=== PATIENT | male | born 1950 | race Caucasian/White ===

== ENCOUNTER 2018-08-30 08:14 | Inpatient (IN) ==
[2018-08-30] MEDS ORDERED: CeFAZolin Syr 2,000MG/20 ML 2,000 MG/20 ML SYRINGE IVPB ONE (10:38)
[2018-08-30] MEDS ORDERED: Ondansetron 4 MG/2 ML VIAL IVP PRN (10:39)
[2018-08-30] MEDS: Ringers Solution, Lactated 1,000 ML IVC SCH ×2 (11:27→20:26)
[2018-08-30 12:04] LABS: Basophils # 0.1 K/mcL (0.0-0.2); Eosinophils # 0.2 K/mcL (0.0-0.6); Eosinophils % 2.1 %; Hematocrit 34.1 % (37.5-50.1); Hemoglobin 11.3 g/dL (12.9-16.9); Immature Granulocytes % 0.3 % (0-4); Lymphocytes # 3.3 K/mcL (0.6-4.6); Lymphocytes % 36.6 %; Mean Corpuscular HGB Conc 33.1 g/dL (31.6-35.5); Mean Corpuscular Hemoglobin 30.2 pg (28.0-33.3); Mean Corpuscular Volume 91.2 fL (83.0-100.0); Monocytes # 0.8 K/mcL (0.0-1.3); Neutrophils # 4.6 K/mcL (1.6-8.9); Platelet Count 249 K/mcL (140-400); Red Blood Count 3.74 M/mcL (4.19-5.50); Red Cell Distribution Width 13.6 % (11.5-14.5)
[2018-08-30 12:10] LABS: Prothrombin Time 11.2 Seconds (9.4-12.1)
[2018-08-30 12:13] LABS: Activated Partial Thrombo Time 33.8 Seconds (26.0-36.0)
[2018-08-30 12:29] LABS: BUN/Creatinine Ratio 14 (6-26); Blood Urea Nitrogen 9 mg/dL (8-23); Calcium 10.2 mg/dL (8.6-10.3); Carbon Dioxide 26 mEq/L (23-29); Chloride 104 mEq/L (98-107); Glucose 80 mg/dL (70-105); Osmolality,Calculated 290 (280-300); Potassium 4.1 mEq/L (3.5-5.1); Sodium 141 mEq/L (136-145); eGFR For Non-African Americans > 60 (> 60)
--- NOTE | 2018-08-30 13:44 | Spine - History & Physical Rep ---
Date of Encounter: 08/30/18 Time of Encounter: 13:42 Assessment and Plan (1) Cervical stenosis of spinal canal Current visit: Yes Status: Chronic (2) Cervical myelopathy Current visit: Yes Status: Chronic On physical exam he is awake and alert in mild distress secondary to pain and nu mbness in upper extremities. Afebrile vital signs stable. He has an unsteady, wide-based gait pattern. He has a positive finger escape sign. He has an equivocal [place] sign. He has no clonus. He can fire all upper and lower extremity motor groups. Lungs are clear, cardiovascular regular rate and rhythm. Abdomen soft, nontender nondistended. Hips move symmetrically. There is no clubbing cyanosis or edema. AP and lateral views of the cervical spine reveal cervical fusion with instrume ntation anteriorly with appropriately placed interbody graft C4-C7. At C3-4 there is a anterolisthesis. There are multilevel degenerative changes. MRI of the cervical spine reveals multilevel degenerative changes. There is previous cervical fusion anteriorly C4-C7. There is severe stenosis with essentially no CSF signal seen at C3-4. This is due to a combination of the anterolisthesis, anterior cervical decompression, and hypertrophied ligamentum flavum posteriorly. There is an anterolisthesis C3 on C4. Impression: 1) cervical stenosis adjacent to previous fusion 2) cervical myelopathy 3) history of cervical fusion Plan: The patient has high likelihood of worsening neurologic function and is at risk for neurologic progression. In this regard I find it reasonable to consider surgery in the form of a exploration of fusion, removal of hardware, anterior cervical decompression fusion C3-4. Risk and benefits were discussed and the patient would like to proceed. He understands he must be medically optimized and cleared prior to surgical intervention. (3) History of cervical spinal arthrodesis Current visit: Yes Status: Chronic History of Present Illness Chief complaint: Following, unsteady gait, upper extremity numbness HPI: Mr. Davison is a 67 year old male who complains of progressive unsteadiness of gait, clumsiness, impairment in hand dexterity such that he cannot perform his usual functional tasks, numbness in the bilateral upper extremities which is been worsening over the course of 4-6 weeks. He has a history of previous cervical fusion. His family doctor was concerned and ordered an MRI examination of the cervical spine which showed significant abnormalities. He came to the office today complaining of worsening symptomatology and was admitted for definitive management. He denies any bowel bladder symptomatology. He denies any fevers, chills or weight loss. Past Med Surg Social Fam HX - Past Medical History Medical history: hyperlipidemia, hypertension Additional medical history: sleep apnea Psychiatric history: no psych history - Past Surgical History Additional surgical history: RIGHT TOTAL KNEE ARTHROPLASTY. RIGHT TOTAL SHOULDER ARTHROPLASTY. BACK SURGERY X2. LEFT FOOT SURGERY X2. Neck surgery with plate placement - Social History Smoking Status: Current every day smoker Packs per day: Less than half a pack. Smokeless Tobacco Status: No Alcohol use: none Drug use: none - Family History Father Living Status: Age at : 58 Hx Family Cardiac Disorders: Yes ([place]) Brother Living Status: Age at : 64 Hx Family Cancer: Yes Medications and Allergies Aspirin Enteric Coated [Aspirin EC] 81 mg PO DAILY 08/13/17 [History] Celecoxib [Celebrex] 200 mg PO DAILY 08/13/17 [History] Diclofenac Sodium [Voltaren] 1 appl TP QID PRN 08/13/17 [History] Lisinopril-HCTZ 20-12.5 [Prinzide 20-12.5] 1 tab PO DAILY 08/13/17 [History] Multivitamin [One Daily Essential] 1 tab PO DAILY 08/13/17 [History] OxyCODONE Immed Rel [Roxicodone 5 MG] 5 mg PO Q4HR PRN #24 tablet 08/13/17 [Rx] Pravastatin Sodium [Pravachol] 40 mg PO HS 08/13/17 [History] Ciprofloxacin [Cipro] 500 mg PO BID #14 tablet 07/05/18 [Rx] Phenazopyridine HCl [Pyridium] 200 mg PO TID PRN #6 tab 07/05/18 [Rx] Allergy/AdvReac Type Severity Reaction Status Date / Time No Known Allergies Allergy Verified 07/05/18 12:05 Results - Labs Result Diagrams: 08/30/18 11:34 08/30/18 11:34 Labs: Abnormal lab results RBC 3.74 M/mcL (4.19-5.50) L 08/30/18 11:34 Hgb 11.3 g/dL (12.9-16.9) L 08/30/18 11:34 Hct 34.1 % (37.5-50.1) L 08/30/18 11:34 MPV 9.0 fL (9.4-12.4) L 08/30/18 11:34 Creatinine 0.66 mg/dL (0.70-1.30) L 08/30/18 11:34 H & H 08/30/18 Range/Units 11:34 Hgb 11.3 L (12.9-16.9) g/dL Hct 34.1 L (37.5-50.1) % All other labs normal.
[2018-08-30] MEDS: *HR* HYDROcodone/Acet 5/325 mg TABLET PO PRN (15:34)
[2018-08-30] MEDS ORDERED: *HR* HYDROcodone/Acet 5/325 mg TABLET PO PRN (17:07)
[2018-08-30] MEDS ORDERED: Naloxone 0.4 MG/ML INJ IVP PRN (17:09)
--- NOTE | 2018-08-30 20:27 | Anesthesia Evaluation PreOp ---
Addendum entered and electronically signed by Sylwia Sanchez MD 08/31/18 14:06: 08-31-18 TTE: Impressions: LVEF 60%. Moderate left ventricular diastolic dysfunction. Normal right ventricular structure and function. Mild mitral regurgitation. Moderate-severe aortic stenosis by Doppler. Grossly, aortic valve leaflet excursion appears severely reduced. Mild-moderate aortic regurgitation. Mild tricuspid regurgitation. Original Note: Date of Encounter: 08/30/18 Time of Encounter: 19:20 - Past History Planned Operation: ACDF C3-4 Cardiac History: HTN, Hyperlipidemia Pulmonary History: Smoker, AMY Dx (non compliant with CPAP) [employer] History: Other (Cervical Stenosis and Myelopathy) Other Medical History: GERD, Other (Rheumatoid Arthritis) Anesthesia History: No Prior Anesthetic Complications, Past Anesthesia (ACDF) Alcohol Use: none Drug use: none Medications and Allergies Aspirin Enteric Coated [Aspirin EC] 81 mg PO DAILY 08/13/17 [History] Celecoxib [Celebrex] 200 mg PO DAILY 08/13/17 [History] Multivitamin [One Daily Essential] 1 tab PO DAILY 08/13/17 [History] Pravastatin Sodium [Pravachol] 40 mg PO HS 08/13/17 [History] HYDROcodone/Acet 5/325 mg [[place] 5-325 mg] 1 tab PO TID PRN 08/30/18 [History] Lisinopril [Zestril] 40 mg PO DAILY 08/30/18 [History] Allergy/AdvReac Type Severity Reaction Status Date / Time No Known Allergies Allergy Verified 07/05/18 12:05 - Meds/Allergy Pre-op Review Medications Reviewed: Yes Allergies Reviewed: Yes Beta Blockers on Current Med List: No Anesthesia Results - Labs 08/30/18 11:34 08/30/18 11:34 - Imaging EKG: report reviewed (SR) Anesthesia Exam Vital Signs/O2 Sat/Glucose, Most Current Temp Pulse Resp BP Pulse Ox 08/30/18 18:47 98.7 F 75 17 128/71 98 Height: 5'8 Weight: 165 lbs NPO (# of Hours): MN Pain Scale: 3 - HEENT Pupil (Motor): Pupils equal, EOMI Mallampati: II Teeth: Normal Oral Opening: Less than or equal to 3 (limited neck extension) - [employer] LOC: Oriented [employer] Motor: Normal Face, Deficit RUE (weakness), Deficit LUE (weakness), Deficit RLE (slight weakness), Deficit LLE (slight weakness with gait) [employer] Sensory: Normal: RLE, LLE, Face, Deficit: RUE (paresthesia), LUE (paresthesia) - Cardiac Rhythm: Regular Murmur: None JVD: No Carotid Bruit: No - Pulmonary Breath Sounds: bilateral Clear Respiratory Effort: Symmetrical Anesthesia Assess/Plan ASA Score: 3 (HTN Tobacco AMY Gerd) Modified [place] Scale for Level of Consciousness: Cooperative, oriented, and tranquil Anesthetic Plan: General Monitoring Plan: Standard Monitors Recovery Plan: PACU (Discussed [place], agrees to proceed)
--- NOTE | 2018-08-30 20:40 | Internal Medicine Consult Note ---
Date of Encounter: 08/30/18 Time of Encounter: 20:38 - Assessment and plan (1) Cervical stenosis of spinal canal Current Visit: Yes Status: Chronic Assessment and plan: Pt seen by Dr. Connor and planing for surgery 08/31/2018. Pre-op evaluation Patient with known hx of HTN and HLD who denies prior hx of CAD, PVD, or [place]. Based on pt's home activity, his METs is >4. Based of pt's above history and physical, he poses low risk for intermediate risk procedure. However, due to audible murmur on exam will strongly recommend echo prior to surgical intervention. Will also check baseline EKG if not already done in ED. (2) Heart murmur Current Visit: Yes Status: Acute Assessment and plan: Pt states he is aware of hx of murmur. His last echo was about 10 years ago. He denies prior hx or CHF or aortic stenosis he is aware of. Murmur is about grade III/ and diastolic in nature. Will check echo in am (3) Hypertension Current Visit: No Status: Chronic Assessment and plan: Pt is on Lisinopril. Qualifiers: Hypertension type: unspecified Qualified Code(s): I10 - Essential (primary) hypertension (4) Hyperlipidemia Current Visit: No Status: Chronic Assessment and plan: Atorvastatin Qualifiers: Hyperlipidemia type: unspecified Qualified Code(s): E78.5 - Hyperlipidemia, unspecified - Time Spent With Patient Total time spent is greater than 50% in coordination of care (as documented) at patient's floor/unit and/or counseling patient: 25 - 35 minutes Internal Medicine - CN: HPI - Data of Consult Consult date: 08/30/18 Requesting Physician: Antoine Lopez Jr MD - Consult Narrative History of present illness: Mr. Davison is a 67 year old male with past medical history of HTN and HLD. Pt has hx of or cervical stenosis and previous fusion but presented with cervical myelopathy which pt an states have been ongoing for > 8 months. Pt had reported multiple joint injections but numbness in B/L upper Extremity progressed. Pt noted to have murmur on physical exam which he states he is aware of, however his last echo was about 10 years ago. He denies any hx of CAD, UT, or PAD. He denies CP, SOB, fever, chills, N/V, abdominal pain, constipation or diarrhea. Past Med Surg Social Fam HX - Past Medical History Medical history: hyperlipidemia, hypertension Additional medical history: sleep apnea Psychiatric history: no psych history - Past Surgical History Additional surgical history: RIGHT TOTAL KNEE ARTHROPLASTY. RIGHT TOTAL SHOULDER ARTHROPLASTY. BACK SURGERY X2. LEFT FOOT SURGERY X2. Neck surgery with plate placement - Social History Smoking Status: Current every day smoker Packs per day: Less than half a pack. Smokeless Tobacco Status: No Alcohol use: none Drug use: none - Family History Father Living Status: Age at : 58 Hx Family Cardiac Disorders: Yes ([place]) Brother Living Status: Age at : 64 Hx Family Cancer: Yes Internal Medicine - CN: Meds Aspirin Enteric Coated [Aspirin EC] 81 mg PO DAILY 08/13/17 [History] Celecoxib [Celebrex] 200 mg PO DAILY 08/13/17 [History] Multivitamin [One Daily Essential] 1 tab PO DAILY 08/13/17 [History] Pravastatin Sodium [Pravachol] 40 mg PO HS 08/13/17 [History] HYDROcodone/Acet 5/325 mg [[place] 5-325 mg] 1 tab PO TID PRN 08/30/18 [History] Lisinopril [Zestril] 40 mg PO DAILY 08/30/18 [History] Allergy/AdvReac Type Severity Reaction Status Date / Time No Known Allergies Allergy Verified 07/05/18 12:05 Hospitalist - CN: Exam - Constitutional Vitals: Temp Pulse Resp BP Pulse Ox 98.7 F 75 17 128/71 98 08/30/18 18:47 08/30/18 18:47 08/30/18 18:47 08/30/18 18:47 08/30/18 18:47 General appearance IM: Present: A&O X 3, no acute distress Exam: . - Head Head exam: Present: atraumatic - Eye Eye exam: Present: EOMI, normal appearance Pupils: Present: fixed, PERRL - ENT ENT exam: Present: mucous membranes moist, normal exam - Expanded ENT Exam Mouth exam: Present: normal external inspection Throat exam: Present: normal inspection - Neck Neck exam general surgery: Present: normal inspection, supple, trachea midline. Absent: tenderness, thyromegaly - Respiratory Respiratory exam: Present: CTAB. Absent: respiratory distress, rhonchi, wheezes - Cardiovascular Cardiovascular exam IM: Present: diastolic murmur - GI/Abdominal GI/Abdominal exam IM: Present: normal bowel sounds, soft. Absent: splenomegaly, tenderness - Extremities Exam Extremities exam IM: Present: full ROM, normal inspection. Absent: calf tenderness, pedal edema, tenderness - Neurological Exam Neurological exam: Present: CN II-XII intact, oriented X3. Absent: no focal deficits - Psychiatric Psychiatric exam: Present: normal affect, normal mood - Skin Skin exam IM: Present: intact, normal color. Absent: erythema, pallor, rash Internal Medicine - CN: Reslt - Labs CBC & Chem 7: 08/30/18 11:34 08/30/18 11:34 Labs: Short CBC 08/30/18 Range/Units 11:34 WBC 9.1 (4.3-11.1) K/mcL Hgb 11.3 L (12.9-16.9) g/dL Hct 34.1 L (37.5-50.1) % Plt Count 249 (140-400) K/mcL Neutrophils # 4.6 (1.6-8.9) K/mcL BMP 08/30/18 11:34 Sodium 141 Potassium 4.1 Chloride 104 Carbon Dioxide 26 BUN 9 Creatinine 0.66 L Glucose 80 Calcium 10.2 - ABG Interpretation ABG results: PT/INR, D-dimer PT 11.2 Seconds (9.4-12.1) 08/30/18 11:34 - Impressions Impressions Chest X-Ray 08/30/18 10:33 IMPRESSION: 1. No acute cardiopulmonary disease. 2. Suspected radiographic findings of emphysema. Correlate with pulmonary history. D/ / Marcio Duvall / Marcio Duvall Interpreting Provider: Marcio Duvall Consult Discharge Plan - Plan Referrals: Avila Sapp [Primary Care Provider] -
[2018-08-31] MEDS: *HR* HYDROcodone/Acet 5/325 mg TABLET PO PRN ×2 (00:53→07:17)
[2018-08-31] MEDS: Ringers Solution, Lactated 1,000 ML IVC SCH (07:21)
[2018-08-31] MEDS ORDERED: Lisinopril 20 MG TABLET PO SCH (09:00)
[2018-08-31] MEDS ORDERED: Multivit/Ca/Min/Fe/FA 1 TAB TABLET PO SCH (09:00)
[2018-08-31] MEDS ORDERED: Celecoxib 200 MG CAPSULE PO SCH (09:00)
[2018-08-31] MEDS ORDERED: Aspirin Enteric Coated 81 MG Tablet PO SCH (09:00)
[2018-08-31 11:31] VITALS: BP 116/77
--- NOTE | 2018-08-31 13:38 | Internal Med Progress Note ---
Hospitalist Progress Note - Encounter Date of Encounter: 08/31/18 Time of Encounter: 13:34 - Subjective Interval History: Pt denies chest pain or SOB. He denies fever, chills, N/V or diarrhea. He denies constipation. - Exam Vitals: Temp Pulse Resp BP Pulse Ox 97.6 F 91 16 116/77 91 08/31/18 11:30 08/31/18 11:30 08/31/18 11:30 08/31/18 11:30 08/31/18 11:30 Exam: General appearance IM: Present: A&O X 3, no acute distress Exam: - Head Head exam: Present: atraumatic - Eye Eye exam: Present: EOMI, normal appearance Pupils: Present: fixed, PERRL - ENT ENT exam: Present: mucous membranes moist, normal exam - Expanded ENT Exam Mouth exam: Present: normal external inspection Throat exam: Present: normal inspection - Neck Neck exam general surgery: Present: normal inspection, supple, trachea midline. Absent: tenderness, thyromegaly - Respiratory Respiratory exam: Present: CTAB. Absent: respiratory distress, rhonchi, wheezes - Cardiovascular Cardiovascular exam IM: Present: diastolic murmur grade III/ - GI/Abdominal GI/Abdominal exam IM: Present: normal bowel sounds, soft. Absent: splenomegaly, tenderness - Extremities Exam Extremities exam IM: Present: full ROM, normal inspection. Absent: calf tenderness, pedal edema, tenderness - Neurological Exam Neurological exam: Present: CN II-XII intact, oriented X3. Absent: no focal deficits - Psychiatric Psychiatric exam: Present: normal affect, normal mood - Skin Skin exam IM: Present: intact, normal color. Absent: erythema, pallor, rash - Assessment and Plan (1) Cervical stenosis of spinal canal Current Visit: Yes Status: Chronic Assessment and Plan: Pt seen by Dr. Connor and planing for surgery 08/31/2018. Pre-op evaluation Patient with known hx of HTN and HLD who denies prior hx of CAD, PVD, or MT. Based on pt's home activity, his METs is >4. Based of pt's above history and physical activity, he poses low risk for intermediate risk procedure. Will also check baseline EKG if not already done in ED. Echo showing moderate to severe aortic stenosis by doppler. Grossly, aortic valve leaflet excursion appears severely reduced. Echo impression/report below. Discussed with Dr. Richards and he states to keep pt from being hypotensive. Keep SBP > 130. Will need to avoid nitrates in patient. Echo 08/31/2018 EV/EV echocardiogram Impressions: LVEF 60%. Moderate left ventricular diastolic dysfunction. Normal right ventricular structure and function. Mild mitral regurgitation. Moderate-severe aortic stenosis by Doppler. Grossly, aortic valve leaflet excursion appears severely reduced. Mild-moderate aortic regurgitation. Mild tricuspid regurgitation. (2) Aortic stenosis Current Visit: Yes Status: Acute Assessment and Plan: Pt reported hx of murmur but was unaware of hx of aortic stenosis. After lengthy discussion with pt and his , he reports that he has been tired off and on. States he was feeling lightheaded at work and his PCP decreased his BP me dication as he thought it was due to working in the sun all day. Pt's states he used to be on HCTZ and Lisinopril but HCTZ was discontinued due to low BP and low NA and Lisinopril dose was decreased. Pt denies episode of syncope or passing out. 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 He states he walks up dirt hills and he also walks up steps. He denies any SOB of breath or recent CP. He states he probably cannot run and per his this is because of joint problems and hx of fused ankle surgery. Discussed with cardiology Dr. Richards and he states keep pt form being hypotensive. He also states if pt not asymptomatic may follow up out pt. Echo 08/31/2018 EV/EV echocardiogram Impressions: LVEF 60%. Moderate left ventricular diastolic dysfunction. Normal right ventricular structure and function. Mild mitral regurgitation. Moderate-severe aortic stenosis by Doppler. Grossly, aortic valve leaflet excursion appears severely reduced. Mild-moderate aortic regurgitation. Mild tricuspid regurgitation. (3) Heart murmur Current Visit: Yes Status: Acute Assessment and Plan: Pt states he is aware of hx of murmur. His last echo was about 10 years ago. He denies prior hx or CHF or aortic stenosis he is aware of. Murmur is about grade III/ and diastolic in nature. Echo as stated above (4) Hypertension Current Visit: No Status: Chronic Assessment and Plan: Pt is on Lisinopril. Will hold for now. (5) Hyperlipidemia Current Visit: No Status: Chronic Assessment and Plan: Atorvastatin DVT Prophylaxis: SCD - Summary of Assessment and Plan Summary of Assessment and Plan: Mr. Davison is a 67 year old male with past medical history of HTN and HLD. Pt has hx of or cervical stenosis and previous fusion but presented with cervical myelopathy which pt and states have been ongoing for > 8 months. Pt had reported multiple joint injections but numbness in B/L upper Extremity progressed. Pt noted to have murmur on physical exam which he states he is aware of, however his last echo was about 10 years ago. He denies any hx of CAD, MT, or PAD. He denies CP, SOB, fever, chills, N/V, abdominal pain, constipation or diarrhea. - Time Spent with Patient Total time spent is greater than 50% in coordination of care (as documented) at patient's floor/unit and/or counseling patient: less than 15 minutes Plan of Care Discussed with: patient Internal Medicine: Result - Labs CBC & Chem 7: 08/30/18 11:34 08/30/18 11:34 - ABG Interpretation ABG results: PT/INR, D-dimer PT 11.2 Seconds (9.4-12.1) 08/30/18 11:34 - Impressions Impressions Chest X-Ray 08/30/18 10:33 IMPRESSION: 1. No acute cardiopulmonary disease. 2. Suspected radiographic findings of emphysema. Correlate with pulmonary history. D/ / Marcio Duvall / Marcio Duvall Interpreting Provider: Marcio Duvall Echocardiogram 08/31/18 20:38 Impressions: LVEF 60%. Moderate left ventricular diastolic dysfunction. Normal right ventricular structure and function. Mild mitral regurgitation. Moderate-severe aortic stenosis by Doppler. Grossly, aortic valve leaflet excursion appears severely reduced. Mild-moderate aortic regurgitation. Mild tricuspid regurgitation. - VTE Documentation of Mechanical Device: Intermittent pneumatic compression device Consult Discharge Plan - Plan Referrals: Avila Sapp [Primary Care Provider] - (2) Aortic stenosis Qualifiers: Cardiac valve disease etiology: etiology unspecified Qualified Code(s): I35.0 - Nonrheumatic aortic (valve) stenosis (4) Hypertension Qualifiers: Hypertension type: unspecified Qualified Code(s): I10 - Essential (primary) hypertension (5) Hyperlipidemia Qualifiers: Hyperlipidemia type: unspecified Qualified Code(s): E78.5 - Hyperlipidemia, unspecified
--- NOTE | 2018-08-31 13:42 | Cardiology Consult Note ---
<Abdoul Butler - Last Filed: 08/31/18 13:53> Date of Encounter: 08/31/18 Time of Encounter: 13:30 Assessment and Plan (1) Cervical myelopathy Current Visit: Yes Status: Chronic Per Cardiology: Spinal surgery note reviewed and patient with pending surgery for exploration of fusion, removal of hardware, anterior cervical decompression fusion C3-4. (2) Aortic stenosis Current Visit: Yes Status: Acute Per Cardiology: History of murmur per patient and . Denies any awareness to bicuspid aortic valve. Echo showed moderate severe aortic stenosis. Patient appears clinically stable and he symptomatically, however does have limited mobility due to multiple with peak issues. Discussed and reviewed with Dr. Richards, at this juncture patient to be considered high risk for planned procedure from a cardiac standpoint. Patient and verbalized understanding and agree to plan. We will discontinue DEANGELO inhibitor and start on beta marco a. Cardiology will sign off, will follow-up in outpatient setting to monitor and stenosis, all questions answered. Please re-consult if needed. Qualifiers: Cardiac valve disease etiology: etiology unspecified Qualified Code(s): I35.0 - Nonrheumatic aortic (valve) stenosis Discussion w patient/family: The assessment and plan as outlined above was discussed with the patient and/or family members who expressed understanding and agreement. All questions were answered. Thank you for involving us in the care of your patient. Please call with any questions. History of Present Illness Consult date: 08/31/18 Requesting physician: Mimi Davies Consult reason: Aortic Stenosis Chief complaint: Neck Pain, Bilateral arm numbness History of present illness: Mr. Davison is a 67 year old male with a relevant past medical history of hypertension, hyperlipidemia, spinal discectomy and fusion, past history of nicotine abuse. Cardiology consult for murmur and aortic stenosis found on echo. Patient seen with at bedside. 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 He does report limited mobility due to back pain and pending cervical fusion surgery. He reports history of arthritis and ankle fusion. He reports pending surgery due to worsening bilateral upper extremity numbness and neck pain. He denies any history of syncope, dizziness, palpitations, falls. Reports was told he had a murmur about 20-30 years ago and had echo done at that time. He denies ever having ELMER completed. Denies any known history of CAD has never had stenting or bypass surgery. Denies any ICD or pacemaker. He denies any short of breath at rest and denies any significant short of breath with exertion. Past Med Surg Social Fam HX - Past Medical History Attestation: Yes The following information was validated with the patient. Source: patient, old records reviewed, obtained from family Medical history: hyperlipidemia, hypertension Additional medical history: sleep apnea Psychiatric history: no psych history - Past Surgical History Additional surgical history: RIGHT TOTAL KNEE ARTHROPLASTY. RIGHT TOTAL SHOULDER ARTHROPLASTY. BACK SURGERY X2. LEFT FOOT SURGERY X2. Neck surgery with plate placement - Social History Smoking Status: Current every day smoker Packs per day: Less than half a pack. Smokeless Tobacco Status: No Alcohol use: none Drug use: none - Family History Father Living Status: Age at : 58 Hx Family Cardiac Disorders: Yes ([place]) Brother Living Status: Age at : 64 Hx Family Cancer: Yes Medications and Allergies Aspirin Enteric Coated [Aspirin EC] 81 mg PO DAILY 08/13/17 [History] Celecoxib [Celebrex] 200 mg PO DAILY 08/13/17 [History] Multivitamin [One Daily Essential] 1 tab PO DAILY 08/13/17 [History] Pravastatin Sodium [Pravachol] 40 mg PO HS 08/13/17 [History] HYDROcodone/Acet 5/325 mg [Randolph 5-325 mg] 1 tab PO TID PRN 08/30/18 [History] Lisinopril [Zestril] 40 mg PO DAILY 08/30/18 [History] Allergy/AdvReac Type Severity Reaction Status Date / Time No Known Allergies Allergy Verified 07/05/18 12:05 All Systems Review: The remainder of the systems were reviewed and are negative - Cardiovascular Cardiovascular: as per HPI - Musculoskeletal Musculoskeletal: abnormal gait, arthralgias, back pain, muscle weakness Physical Examination Vital Signs, Last 4 Hours Temp Pulse Resp BP Pulse Ox 08/31/18 11:30 97.6 F 91 16 116/77 91 General: Conversant, No Apparent Distress HEENT: Atraumatic, Normocephaly, Mucus Membranes Moist Neck: No JVD, Normal carotid pulses Cardiac: Reg Rate and Rhythm, Normal S1 and S2, Other (Grade 3/6 murmur appreciated) Lungs: Normal Breath Sounds, No Wheeze, Rales, Rhonchi Neuro: Alert and responsive, No focal deficits noted Abdomen: Soft, Non-Tender Skin: No rashes noted on visualized skin Musculoskeletal: No Chest Wall Tenderness Extremities: No Clubbing, No Cyanosis, No Edema, Normal Pulses Results 08/30/18 11:34 08/30/18 11:34 Laboratory Tests 08/30/18 08/30/18 08/30/18 11:34 11:34 11:34 Hgb 11.3 L Hct 34.1 L INR 1.0 Creatinine 0.66 L Est GFR (Non-Af Amer) > 60 ITS Impressions Chest X-Ray 08/30/18 10:33 IMPRESSION: 1. No acute cardiopulmonary disease. 2. Suspected radiographic findings of emphysema. Correlate with pulmonary history. D/ / Marcio Duvall / Marcio Duvall Interpreting Provider: Marcio Duvall Echocardiogram 08/31/18 20:38 Impressions: LVEF 60%. Moderate left ventricular diastolic dysfunction. Normal right ventricular structure and function. Mild mitral regurgitation. Moderate-severe aortic stenosis by Doppler. Grossly, aortic valve leaflet excursion appears severely reduced. Mild-moderate aortic regurgitation. Mild tricuspid regurgitation. Active Medications Hydrocodone Bitart/Acetaminophen (Randolph 5-325 Mg) 1 tab PO Q4HR PRN PRN Reason: Pain Stop: 03/01/19 10:41 Last Admin: 08/31/18 07:17 Dose: 1 tab Hydrocodone Bitart/Acetaminophen (Randolph 5-325 Mg) 1 tab PO TID PRN PRN Reason: Pain Stop: 03/01/19 17:08 Aspirin (Aspirin Ec) 81 mg PO DAILY TIFFANIE Stop: 03/02/19 09:01 Last Admin: 08/31/18 10:56 Dose: Not Given Atorvastatin Calcium (Lipitor) 10 mg PO HS TIFFANIE Stop: 03/01/19 21:01 Last Admin: 08/30/18 20:21 Dose: 10 mg Celecoxib (Celebrex) 200 mg PO DAILY TIFFANIE Stop: 03/02/19 09:01 Last Admin: 08/31/18 10:56 Dose: Not Given Bacitracin 50,000 unit/Polymyxin B Sulfate 500,000 unit/ Sodium Chloride 1,000 ml 0 unit IR ONCE ONE Stop: 08/31/18 17:31 Lactated Ringer's (Lactated Ringers) 1,000 mls @ 100 mls/hr IVC .Q10H [facility] Stop: 03/01/19 10:46 Last Admin: 08/31/18 07:21 Dose: 100 mls/hr Lisinopril (Zestril) 40 mg PO DAILY [facility] Stop: 03/02/19 09:01 Last Admin: 08/31/18 10:56 Dose: Not Given Multivitamins/Calcium (Thera M Plus) 1 tab PO DAILY TIFFANIE Stop: 03/02/19 09:01 Last Admin: 08/31/18 10:56 Dose: Not Given Naloxone HCl (Narcan) 0.4 mg IVP Q2MIN PRN PRN Reason: SEE COMMENTS Stop: 03/01/19 17:10 Ondansetron HCl (Zofran) 4 mg IVP Q6HR PRN; Protocol PRN Reason: Nausea And Vomiting Stop: 03/01/19 10:40 - Imaging and Cardiology Echo: report reviewed - EKG Interpretation EKG results cardiology: personally reviewed, normal ECG, sinus rhythm Consult Discharge Plan - Plan Referrals: Avila Sapp [Primary Care Provider] - <Sania Richards - Last Filed: 08/31/18 14:48> - Attending Attestation Patient was seen and evaluated independently by me. Findings, assessment and plan were discussed at length with patient, questions answered. Agree with nurse practitioner's documentation. Addition as follows, 67 yo CM ho HTN, HLD, cervical fusion c/b cervical myelopathy. Admitted for cervical fusion exploration and ACDF of C3-4. Consulted for newly found mod- severe . Pt's METs >4, no ho syncope, MOLINA, exertional cp, palpitations or LE edema. preserved but soft A2. pt unable to run treadmill for objective METs and hemodynamic significance due to cervical myelopathy. A: METs>4, however, given moderate to severe of incomplete evaluation due to cervical myelopathy, pt is deemed as moderate to high CV risk for surgery P: avoid hypovolemia nicanor-op avoid prolonged hypotension use lopressor iv nicanor-op while holding ACEi Cardiology clinic follow up for progression of Sania Richards MD, PhD Assessment and Plan Discussion w patient/family: The assessment and plan as outlined above was discussed with the patient and/or family members who expressed understanding and agreement. All questions were answered. Thank you for involving us in the care of your patient. Please call with any questions. History of Present Illness History of present illness: Mr. Davison is a 67 year old male All Systems Review: The remainder of the systems were reviewed and are negative Physical Examination Vital Signs, Last 4 Hours Temp Pulse Resp BP Pulse Ox 08/31/18 11:30 97.6 F 91 16 116/77 91 Results 08/30/18 11:34 08/30/18 11:34
[2018-08-31] MEDS ORDERED: KETAMINE HCL 50 MG/ML SYRINGE IV ONE (13:52)
[2018-08-31] MEDS ORDERED: Lidocaine -MPF 2% 2 ML VIAL ONE ×2 (13:56→14:11)
[2018-08-31] MEDS ORDERED: *HR* Succinylcholine 200 MG/10 ML VIAL IVP ONE (13:56)
[2018-08-31] MEDS ORDERED: *HR* Etomidate 40 MG/20 ML VIAL IVP ONE (13:57)
[2018-08-31] MEDS ORDERED: *HR* Midazolam HCl 2 MG/2 ML VIAL ONE (13:58)
[2018-08-31] MEDS ORDERED: *HR* Remifentanil 1 MG VIAL IVP ONE ×2 (13:58→16:36)
[2018-08-31] MEDS ORDERED: *HR* FentaNYL (PF) 100 MCG/2 ML VIAL ONE (13:58)
[2018-08-31] MEDS ORDERED: Lidocaine -MPF 4% 5 ML AMPUL ONE (14:10)
[2018-08-31] MEDS ORDERED: Ondansetron 4 MG/2 ML VIAL ONE (14:11)
[2018-08-31] MEDS ORDERED: Dexamethasone 4 MG/ML VIAL ONE (14:11)
[2018-08-31] MEDS ORDERED: Heparin 1,000 UNITS/500 mL 500 ML ONE ×2 (14:12→18:22)
[2018-08-31] MEDS ORDERED: EPHEDrine 50 MG/ML VIAL ONE (14:13)
[2018-08-31] MEDS ORDERED: *HR* PHENYLEPHRINE 1,000 MCG/10 ML SYRINGE IVP ONE (14:15)
[2018-08-31] MEDS ORDERED: *HR* HYDROmorphone (PF) 1 MG/ML SYRINGE IVP PRN (15:54)
[2018-08-31] MEDS ORDERED: *HR* OxyCODONE Immed Rel 5 MG TABLET PO PRN (15:54)
[2018-08-31] MEDS ORDERED: Ondansetron 4 MG/2 ML VIAL IVP ONE (15:54)
[2018-08-31] MEDS ORDERED: Albumin Human 5% 25.0 GM/500 ML VIAL ONE (17:21)
[2018-08-31] MEDS ORDERED: Bacitracin 50,000 UNIT, Polymyxin B Sulfate 500,000 UNIT, Sodium Chloride IRRigation 1,... IR ONE (17:30)
[2018-08-31] MEDS ORDERED: 0.9 % Sodium Chloride 300 ML ONE (17:30)
[2018-08-31] MEDS ORDERED: Isovue-300 150 ML INFUS..BTL ONE (18:25)
--- NOTE | 2018-08-31 19:21 | Operative Note ---
Date of procedure: 08/31/18 Pre-op diagnosis: Left neck hemorrhage Post-op diagnosis: same Procedure: 1. Left neck exploration for hemorrhage. 2. Left vertebral angiogram via left brachial artery with 6 [place] islander sheath. 3. Left vertebral artery 2.8 x 19mm covered stent placement. Complications: No complications directly related to this procedure. Anesthesia: GETA Surgeon: Antoine Rodriguez Was there an timber management assistant present: No Rough Rounder Machine: Alexander Banuelos Estimated blood loss (cc): 5 Specimen: None Condition: Procedure in Detail: Indications: The patient is a 67-year-old male was undergoing a reoperative cervical spine procedure via a left anterior approach. During the procedure the patient developed severe intraoperative blood loss. The patient became hemodynamically unstable multiple units of blood were transfused. The patient underwent a cardiac arrest and ACLS protocols were initiated. Vascular surgery was counseled emergently for intraoperative evaluation and intervention. Procedure: The initial evaluation the patient is undergoing cardiac compressions was he would amply unstable. There are expiration of the wound initially revealed no active bleeding site. However the patient's blood pressure improved rapid arterialized blood flow was noted to be emerging from the cervical spine. A vertebral artery injury was suspected. However the vessel was tightly lodged between the 2 bony structures and could not be exposed for ligation or surgical repair. Direct pressure was used to aid in hemostasis. During this time the patient became hemodynamically unstable once again. Further ACLS protocol including chest compressions was performed. The patient's left arm was prepped and draped sterilely. Under ultrasound guidance the left brachial artery was cannulated with a micropuncture needle. A microwire was inserted into the lumen needle exchanged for a micropuncture sheath. A Bentson wire was advanced into the subclavian artery and into the aortic arch. The micropuncture sheath was exchanged for a 4-Welsh standard length sheath. A Berenstein catheter was used to direct the Bentson wire into the left vertebral artery. The Berenstein catheter was advanced into the left vertebral artery. Multiple images were performed which ultimately revealed extravasation of contrast from the vertebral artery. The Bentson wire was exchanged for a journey wire. A 2.8 x 19 mm covered stent was obtained from the catheter. The stent was advanced over the wire. Due to the compressions, direct pressure being held and multiple devices in the operative field, imaging was difficult. Therefore a hemostat was placed directly over the arterial injury. The stent was aligned with the hemostat and deployed. The balloon was removed. Thrombin and Gelfoam were packed directly over the arterial bleeding site and direct pressure was held. Significantly decreased bleeding was noted. Despite decreased bleeding the patient remained hemodynamically unstable. After approximately 1.5 hours of ACLS protocol the patient could not be resuscitated and the decision was made to discontinue coating the patient.
--- NOTE | 2018-08-31 19:34 | Anesthesia Progress Note ---
Date of Encounter: 08/31/18 Time of Encounter: 19:06 Anesthesia Note - Note Note: 08/31/18 19:06 Called STAT to OR 7 due to acute blood loss from surgical site. At 17:20 CPR was initiated and continued until 18:48. During this period multiple units of PRBC's, platelets, and FFP were infused along with multiple doses of epinephrine, neosynephrine, Sodium Bicarbonate and Calcium. The surgical site bleeding was not able to be stopped. The patients was in asystole, and extremely hypotensive and unresponsive to CPR. After approximately 1.5 hours CPR was discontinued.
[2018-08-31] MEDS ORDERED: Esmolol 100 MG/10 ML VIAL IVP ONE (19:39)
[2018-08-31] MEDS ORDERED: *HR* Phenylephrine 10 MG/ML VIAL ONE (19:39)
[2018-08-31] MEDS ORDERED: *HR* EPINEPHrine 1 MG/ML AMPUL ONE (19:39)
--- NOTE | 2018-09-01 08:15 | Orthopedic Operative Note ---
Date of procedure: 08/31/18 Pre-op diagnosis: Cervical stenosis, cervical myelopathy Post-op diagnosis: same Operation/Findings: Exploration of fusion, removal of hardware, attempted cervical fusion C3-4: The patient was brought to the operating room and placed supine on the operating room table. Successful general endotracheal anesthesia intubation was performed. Neurophysiologic monitoring personnel placed leads on the upper and lower extremities as well as the cranium for EMG monitoring purposes. Appropriate baseline potentials were noted by the neurophysiologic monitoring staff. Richey catheter was placed prior to positioning. Compression boots and stockings were placed for deep vein thrombosis prophylaxis. Padding was also placed all bony prominences including the ulnar nerve near the medial epicondyles of the elbows were appropriately padded. Mild traction was placed on the bilateral shoulders and taped into place. Preoperative antibiotics were administered. The area from the mandible bilaterally to the upper thoraces was prepped and draped in the usual sterile fashion. An oblique incision was made at the level of the cricoid cartilage which is approximately 3 cm in length and extended from the midline of the cervical spine laterally towards the sternocleidomastoid muscle on the left. It was 1 cm medial and parallel to the sternocleidomastoid muscle on the left. We then performed standard medial approach to the carotid sheath. Sponges were used to tease the fascial medial to the sternocleidomastoid muscle while carefully controlling and palpating the carotid artery. Using careful dissection we were able to get to the level of the anterior vertebral bodies and longus coli muscles. The spinal needle was placed at the appropriate C3-4 level, and intraoperative radiograph was obtained which was a cervical spine lateral radiograph. The needle and radiograph confirmed we were at the correct C3-4 operative level. We palpated the anterior cervical hardware which extended from C4-C7. We removed the cervical plate and screws and standard fashion. We explored and palpated the fusion mass and appeared to be a solid arthrodesis. We further exposed the C3-4 level level by using Bovie cautery under the medial edge of the longus coli muscles to allow them to be retracted approximately 2 mm laterally on each side. An 11 blade was used to perform anterior discectomy at the appropriate C3-4 level after an initial annulotomy of the anterior longitudinal ligament and annulus was performed. Further disc material was removed with pituitary Rongeurs. Subsequently, Synthes pins were placed at the C3 and C4 vertebral bodies res pectively to provide distraction. We then used a Trimline cervical retractor which was placed in both medial and lateral as well as inferior superior direction to allow full visualization of the appropriate C3-4 disc and C3 and C4 vertebral bodies. The Leica microscope was brought to the field and the remainder of the procedure was performed under the guidance of this microscope. We first started removing anterior osteophyte on C3 using a bur. While working within the C3-4 disc space a rapid and significant blood loss occurred from the bone and disc space. Control was attempted with lap sponges but secondary to continuous significant bleeding sponges were removed and direct manual pressure was applied. The anesthesia team was alerted to the profuse blood loss and both the general surgery and vascular surgery teams were immediately alerted. After significant and lengthy resuscitative efforts were attempted including pressors, significant blood products and fluids, chest compressions, and attempts by vascular surgery to cannulate and tamponade the left vertebral artery the patient remained pulseless without evidence ofcardiac activity and the code was called after agreement of the surgeons and anasthesia staff involved. Complications: Excessive blood loss, expiration of patient. Surgeon: Antoine Lopez Jr Was there an assistant basketball coach present: No Estimated blood loss (cc): 2,500 Specimen: None Condition: stable Disposition: other (Expiration)
--- NOTE | 2018-09-03 19:08 | Electrocardiograph Report ---
[address] [address] Test Date: 2018-08-29 Pat Name: Cleveland Davison Department: 114 Room: [facility] Gender: M Audience Coordinator: : 1950 Requested By: Antoine Lopez Order Number: [id number] Reading MD: Isidro Hassan Measurements Intervals [place] Rate: 58 P: 44 PA: 171 QRS: 36 QRSD: 98 T: 72 QT: 402 QTc: 400 Interpretive Statements SINUS BRADYCARDIA LOW QRS VOLTAGE IN PRECORDIAL LEADS Electronically Signed On 09-03-2018 19:06:30 EDT by Isidro Hassan
== END 2018-08-31 18:48 | disposition expired | DRG 519 ==
LOC: 3NENU 08:37
PROVIDERS: ADMIT Orthopaedic Surgery Orthopaedic Surgery of the Spine; ATTEND Orthopaedic Surgery Orthopaedic Surgery of the Spine
PROC: IRANGIO (2018-08-31 17:30)